=== PATIENT | female | born 1995 | race American Indian/Alaskan Native ===

== ENCOUNTER 2017-10-27 11:22 | Emergency (ER) | payer SELFPAY ==
[2017-10-27 12:08] LABS: Basophils % (Auto) 0.4 % (0.0-1.8); Eosinophils # (Auto) 0.1 K/mm3 (0.0-0.4); Eosinophils % (Auto) 1.6 % (0.0-4.3); Hematocrit 28.1 % (30.3-42.9); Lymphocytes # (Auto) 1.4 K/mm3 (1.2-5.4); Lymphocytes % (Auto) 21.7 % (13.4-35.0); Mean Corpuscular HGB Conc 32 % (30-34); Mean Corpuscular Hemoglobin 29 pg (28-32); Mean Corpuscular Volume 90 fl (79-97); Monocytes # (Auto) 0.4 K/mm3 (0.0-0.8); Monocytes % (Auto) 5.5 % (0.0-7.3); Platelet Count 198 K/mm3 (140-440); Red Blood Count 3.14 M/mm3 (3.65-5.03); Red Cell Distribution Width 13.7 % (13.2-15.2)
--- NOTE | 2017-10-27 12:19 | Emergency Department Report ---
ED Female HPI - General Chief complaint: Vaginal Bleeding Stated complaint: VAG BLEEDING Time Seen by Provider: 10/27/17 12:07 Source: patient, family Mode of arrival: Ambulatory Limitations: No Limitations - History of Present Illness Initial comments: Monique is a healthy 22-year-old female who presents with vaginal bleeding. On October 02, she underwent surgical for 9 week . She has had vaginal bleeding mostly spotting since the procedure. Sedation had severe cramping with vaginal bleeding including 6 large clots. Cramping has improved spontaneously. Pain is 2 out of 10 in severity. MD Complaint: vaginal bleeding -: week(s) (vaginal spotting and bleeding since procedure , large clots today) Quality: cramping Consistency: now resolved Are you Now?: No Associated Symptoms: vaginal bleeding - Related Data Allergies Allergy/AdvReac Type Severity Reaction Status Date / Time phenytoin [From Dilantin] Allergy Rash Verified 10/27/17 11:31 ED Review of Systems ROS: Stated complaint: VAG BLEEDING Other details as noted in HPI Comment: All other systems reviewed and negative Constitutional: denies: fever, malaise Respiratory: denies: cough Cardiovascular: denies: chest pain ED Past Medical Hx - Past Medical History Previous Medical History?: Yes Hx Seizures: Yes (doesn't require meds) Additional medical history: 10/02/17 - Surgical History Past Surgical History?: Yes Additional Surgical History: 10/02/17 ED Physical Exam - General Limitations: No Limitations General appearance: alert, in no apparent distress - Head Head exam: Present: atraumatic, normocephalic - Eye Eye exam: Present: normal appearance - ENT ENT exam: Present: mucous membranes moist - Neck Neck exam: Present: normal inspection. Absent: meningismus - Respiratory Respiratory exam: Present: normal lung sounds bilaterally. Absent: respiratory distress, wheezes, rales, rhonchi - Cardiovascular Cardiovascular Exam: Present: regular rate, normal rhythm, normal heart sounds. Absent: systolic murmur, diastolic murmur, rubs, gallop - GI/Abdominal GI/Abdominal exam: Present: soft, normal bowel sounds. Absent: distended, tenderness, guarding, rebound - Extremities Exam Extremities exam: Present: normal inspection - Back Exam Back exam: Present: normal inspection - Neurological Exam Neurological exam: Present: alert, oriented X3 - Psychiatric Psychiatric exam: Present: normal affect, normal mood - Skin Skin exam: Present: warm, dry, intact, normal color. Absent: rash ED Course Vital Signs 10/27/17 11:25 Temperature 98.4 F Pulse Rate 73 Respiratory 16 Rate Blood Pressure 103/61 O2 Sat by Pulse 100 Oximetry ED Medical Decision Making - Lab Data Result diagrams: 10/27/17 11:46 Laboratory Results - last 24 hr 10/27/17 10/27/17 10/27/17 11:46 11:46 11:46 WBC 6.7 RBC 3.14 L Hgb 9.0 L Hct 28.1 L MCV 90 MCH 29 MCHC 32 RDW 13.7 Plt Count 198 Lymph % (Auto) 21.7 Shannon % (Auto) 5.5 Eos % (Auto) 1.6 Baso % (Auto) 0.4 Lymph # 1.4 Shannon # 0.4 Eos # 0.1 Baso # 0.0 Seg Neutrophils % 70.8 H Seg Neutrophils # 4.7 HCG, Quant 413.1 H Blood Type O POSITIVE Antibody Screen Negative Vital Signs - 24 hr 10/27/17 11:25 Temperature 98.4 F Pulse Rate 73 Respiratory 16 Rate Blood Pressure 103/61 O2 Sat by Pulse 100 Oximetry - Medical Decision Making Monique presents with heavy vaginal bleeding 24 days status post surgical on October 02. According to ultrasound, appears to be complete. I explained to mother and daughter that abnormal vaginal bleeding is to be expected after gynecological surgical procedure. After a few months her menses will return to normal. Blood type O positive Critical care attestation.: If time is entered above; I have spent that time in minutes in the direct care of this critically ill patient, excluding procedure time. ED Disposition Clinical Impression: Vaginal bleeding, Complete Disposition: DC-01 TO HOME OR SELFCARE Is pt being admited?: No Does the pt Need Aspirin: No Condition: Stable Instructions: Dilation and Curettage (ED) Referrals: KIRTI CHIN MD [Staff Physician] - as needed Forms: Work/School Release Form(ED) Time of Disposition: 14:45
--- NOTE | 2017-10-27 14:40 | Ultrasound Report ---
ULTRASOUND OB LESS THAN 14 WEEKS - TRANSABDOMINAL AND TRANSVAGINAL INDICATION: Vaginal bleeding. Status post surgical on 10/02/2017. Serum beta-hCG 413.1 units. COMPARISON: None similar at this institution. FINDINGS: Transabdominal and transvaginal pelvic sonography performed in this patient with LMP unknown. A 9.1 x 5.8 x 6.3 cm uterus appears heterogeneous with a nonspecific, slightly complex 0.7 cm intrinsic cystic focus as on endovaginal images 6-8, amongst others. No viable intrauterine gestation identified. Small pelvic free fluid. Right ovary measures 2.5 x 2 x 2.7 cm. The left ovary is 3.2 x 1 x 2.3 cm. CONCLUSION: 1. No definite viable intrauterine gestation identified at this time in this patient status post recent with a nonspecific, slightly complex cystic endometrial focus, presumably resolving hemorrhage, though other possibilities as residual gestational products difficult to entirely exclude at this time. 2. Normal bilateral ovaries. Please also correlate clinically, with serial serum beta-hCG values and/or followup sonogram, as warranted. Thank you for the opportunity to participate in this patient's care.
[2017-10-27 16:04] VITALS: BP 106/62
== END 2017-10-27 15:35 | disposition home or self-care (01) ==
LOC: ED 11:22
DX: N99.821 Postprocedural hemorrhage of a genitourinary system organ or structure following other procedure (principal); N93.8 Other specified abnormal uterine and vaginal bleeding; R56.9 Unspecified convulsions; Z88.8 Allergy status to other drugs, medicaments and biological substances
CPT/HCPCS: 36415; 76801; 76817; 84702; 85025; 86850; 86900; 86901